=== PATIENT | male | born 1980 | race Caucasian/White ===

== ENCOUNTER → 2016-12-20 | Day surgery (SDC) | payer OTHER ==
[~2016-12-20] MED LIST: FLOMAX0.4 M1 PO; IBUPROFEN800 M1 PO; KEFLEX500 MG PO; PERCOCET 5-3251 EACH PO; ZOFRAN ODT4 M1 PO
--- NOTE | 2016-12-20 16:23 | Operative Report ---
Operative/Inv Procedure Report Surgery Date: 12/20/16 Name of Procedure: Right ureter ESWL, fluoroscopy. Pre-Operative Diagnosis: Right colic, right distal ureter stone. Post-Operative Diagnosis: Same Estimated Blood Loss: n/a Surgeon/Pleat Taper: AYLIN RAMIRES MD Anesthesia: moderate sedation Specimens: None Complications: None Operative/Procedure Note Note: The patient was taken to the operating room and placed on the ESWL table in supine position. With the patient awake, timeout was performed to cofirm correct identity, procedure, laterality, anesth., and other pertinent raya- operative information. The patient's RIGHT flank was placed over the table cut -out, overlying the dome of the shockwave generator. C-arm fluroscopy, as well as renal US, was used to locate the stone, and evaluate the RIGHT kidney. The stone was clearly visible on fluoroscopy at the distal right ureter, measuring approximately 6 mm stone burden. Renal US confimred mild hydronephrosis, and additional stone, and no tumor, seen in the right kidney. After adequate anesthesia, the right ureter stone's position was optimized for Shockwave lithotrypsy using fluoroscopy in AP and oblique views. The E.S.W.L. was initiated at low power levels x 200 shocks. After noting the patient's tolerance to the shockwaves, the shock wave power level was quickly maximized. Toward the end of the procedure, the composition of the stone had changed significantly indicating the pulverization of the ureter stone. A total of 3000 shockwaves were delivered to the stone in order to achieve adequate lithotrypsy. The patient tolerated both the procedure well, was awakened, and taken to recovery in satisfactory condition via stretcher. The pt will be dischared home with pain meds, diet orders, and intructions to catch fragments with straining the urine. The patient is to have follow-up renal ultrasound and KUB in 1-2 weeks, prior to follow-up visit in my office. Findings: 6mm right distal ureter stone clearly visible. Discharge Disposition: PACU CC: AYLIN RAMIRES MD
== END ==
LOC: STS 12:30
DX: N13.2 Hydronephrosis with renal and ureteral calculous obstruction (principal)
CPT/HCPCS: J2250

== ENCOUNTER → 2017-03-16 | Day surgery (SDC) | payer OTHER ==
[~2017-03-16] VITALS: Ht 172.7 cm; Wt 131.5 kg
--- NOTE | 2017-03-16 10:04 | Operative Report ---
Operative/Inv Procedure Report Surgery Date: 03/16/17 Name of Procedure: Cystoscopy. Right flexible ureteroscopy, with basket extraction of 5 mm stone. Holmium YAG laser standby. Retrograde pyelogram with fluoroscopy. Pre-Operative Diagnosis: Right ureter stone with obstruction. Post-Operative Diagnosis: Same Estimated Blood Loss: scant Surgeon/Telecom Billing Analyst: AYLIN RAMIRES MD Anesthesia: laryngeal mask airway Drains: none Specimens: right ureter stone Complications: none Operative/Procedure Note Note: The patient was taken to the operating room and placed on the OR table in supine position. Timeout was performed, with the patient awake, in order to confirm correct patient, procedure, laterality, and other pertinent perioperative information. After adequate anesthesia, and antibiotics, the patient was then placed in yellow-fin lithotomy stirrups, then draped and prepped in the usual surgical fashion. A 22 [place] cystoscope sheath with 30 angle lens was inserted into the bladder and advanced into the bladder without difficulty. Upon entering the bladder, the bladder was noted to be free of tumor, free of stone. Both orifices were in their orthotopic position. The right ureter orifice was intubated with an 5Fr. tiger-tail open-ended catheter, and a retrograde pyelogram with fluoroscopy was performed. A 5 mm filling defect was seen in the distal ureter with proximal hydronephrosis. The tiger tail catheter was removed, followed by insertion of a 0.035 Glidewire, which was advanced into the right renal pelvis, bypassing the stone, without difficulty. Correct placement of the Glidewire was confirmed on fluoroscopy. Leaving the Glidewire in place, and the flexible ureteroscope was railroaded over the gluidewire. The flexible ureteroscope was advanced over the Glidewire, into the bladder, and the up the right ureter with fluoroscopy visualization, without significant difficulty. The Glidewire was then removed. Pyeloscopy and calyxoscopy, of the upper, middle, and lower poles reveal no evidence of tumor, and no evidence of stone. Additionally, no stones, nor any tumor was visualized in the renal pelvis. The entire length of the ureter was also visualized carefully on the way out and at the distal ureter, the stone was clearly visible. A 0 tip nitinol basket was inserted through the ureteroscope, which was used to grasp the stone in its entirety. The holmium YAG laser fat was on standby in case the stone was too large to extract easily, was then powered down. The bladder was then drained at the end of the case. The patient tolerated the procedure well. All sponge needle and instrument count were correct at the end of the case. After the patient was awakened, he was then taken to the recovery room in satisfactory condition. He will be discharged home with pain medication as well as antibiotics for a few days. Findings: 5mm stone distal ureter Discharge Disposition: PACU CC: AYLIN RAMIRES MD
--- NOTE | 2017-03-16 19:17 | RADIOLOGY REPORT ---
EXAMINATION: XR KIDNEYS, URETER, BLADDER CLINICAL INDICATION: Right-sided urinary calculus COMPARISON: 02/03/2017 TECHNIQUE: 2 intraoperative C-arm images of the abdomen. FINDINGS: Opacification of the right-sided system. Opacification appear minimally blunted. No gross filling defects on this limited series. IMPRESSION: As above.
== END ==
LOC: STS 01:47
DX: N13.2 Hydronephrosis with renal and ureteral calculous obstruction (principal)
CPT/HCPCS: 74000; 82355; J0131